=== PATIENT | male | born 1945 | race Hispanic/Latino ===

== ENCOUNTER 2019-01-26 08:52 | Day surgery (SDC) | payer OTHER ==
[~2019-01-26] VITALS: Ht 165.1 cm; Wt 82.1 kg
[~2019-01-26 08:52] MED LIST: AMLO5TAB9 PO; CILO100T PO; CLOP75TA32 PO; FERROUS SULFATE PO; FURO40TA5 PO; GABA-529 PO; GLIP5TAB11 PO; HYDR-3830 PO; ISOS60TA4 PO; LOSA25TA41 PO; METO50TA18 PO; SIMV40TA5 PO; SODIUM CHLORIDE 0.9% 1000ML 1,000 ML IV ONE; TAMS0.4C32 PO
[2019-01-26 10:08] VITALS: BP 117/67
--- NOTE | 2019-01-26 10:11 | NUR ---
NURSING PT IS BLIND AND GIVES PERMISSION TO DAUGHTER IN LAW TO SIGN PERMIT FOR HIM Addendum: 01/26/19 at 1013 by JAZZY WILSON RN Amended: Links added.
[2019-01-26] MEDS ORDERED: PROPOFOL 10 MG/ML 20ML VIAL IV ONE (11:13)
[2019-01-26 11:41] VITALS: BP 93/61
[2019-01-26 11:45] VITALS: BP 111/68
[2019-01-26 12:00] VITALS: BP 102/63
[2019-01-26 12:01] VITALS: BP 130/51
== END 2019-01-26 12:20 | disposition home or self-care (01) ==
LOC: ENDO 08:52
PROVIDERS: ATTEND Internal Medicine
DX: D12.0 Benign neoplasm of cecum (principal); K29.50 Unspecified chronic gastritis without bleeding; K21.0 Gastro-esophageal reflux disease with esophagitis; D50.9 Iron deficiency anemia, unspecified; K57.30 Diverticulosis of large intestine without perforation or abscess without bleeding; K25.4 Chronic or unspecified gastric ulcer with hemorrhage; K31.89 Other diseases of stomach and duodenum; K22.8 Other specified diseases of esophagus; Z68.32 Body mass index [BMI] 32.0-32.9, adult; E78.5 Hyperlipidemia, unspecified; I25.10 Atherosclerotic heart disease of native coronary artery without angina pectoris; M19.90 Unspecified osteoarthritis, unspecified site; I13.0 Hypertensive heart and chronic kidney disease with heart failure and stage 1 through stage 4 chronic kidney disease, or unspecified chronic kidney disease; E11.22 Type 2 diabetes mellitus with diabetic chronic kidney disease; N18.9 Chronic kidney disease, unspecified; I50.9 Heart failure, unspecified; Z79.899 Other long term (current) drug therapy; Z79.84 Long term (current) use of oral hypoglycemic drugs; Z98.890 Other specified postprocedural states; Z95.0 Presence of cardiac pacemaker; Z95.1 Presence of aortocoronary bypass graft
CPT/HCPCS: 43239; 45380; 82948 ×2; 88305; A4606; J2704; J7030